=== PATIENT | female | born 1950 | race Caucasian/White ===

== ENCOUNTER → 2025-04-11 15:30 | Outpatient (REF) | payer OTHER, SELFPAY | LOC: RAD 15:30 | PROVIDERS: ATTENDING PHYSICIAN Student in an Organized Health Care Education/Training Program; FAMILY PHYSICIAN Family Medicine | DX: M54.2 Cervicalgia (principal); M54.50 Low back pain, unspecified; R20.0 Anesthesia of skin; R76.8 Other specified abnormal immunological findings in serum; R93.89 Abnormal findings on diagnostic imaging of other specified body structures | CPT/HCPCS: 72202 ==